=== PATIENT | male | born 1980 | race Hispanic/Latino ===

== ENCOUNTER 2020-02-08 21:01 | Emergency (ER) | payer OTHER ==
--- NOTE | 2020-02-08 21:48 | Emergency Department Report ---
ED Male HPI - General Stated complaint: URINARY RETENION Time Seen by Provider: 02/08/20 21:38 Source: patient Mode of arrival: Ambulatory Limitations: No Limitations - History of Present Illness Initial comments: Patient is a 39-year-old male that presents emergency room for complaints of lower abdominal pain and urinary retention. Patient states he has not urinated yet today. Patient states he is tried 10-20 times to urinate. Patient states just after arriving with EMS to the hospital he went into the restroom and urinated and his pain has improved. Patient states that his pain upon arrival was a 10 out of 10 and patient states that the pain now is a 2 out of 10. Patient states that his pain is better with rest and urination. Patient states his pain was worse with movement and palpation. Patient states his pain was lower abdomen and bladder pain. Patient denies dysuria. Patient denies fever and chills. Patient states he is currently at [facility] for involuntary mental rehabilitation. Patient states he is not exactly sure why he is at [facility]. Patient states he is on a 1014. Patient has a sitter with him from [facility]. Patient denies recent travel. Patient denies recent international travel. Patient denies exposure to the novel coronavirus. Patient denies sick contacts. Patient denies fever and chills. Patient denies cough. Patient denies diarrhea. Patient denies coming in contact with anybody with symptoms of the novel coronavirus. -: Sudden Location: abdomen Severity scale (0 -10): 2 Quality: aching Consistency: other Improves with: urination, rest Worsens with: movement new medication - Related Data Sexually active: No Previous Rx's Medication Instructions Recorded Last Taken Type Sulfamethoxazole/Trimethoprim 1 each PO BID 10 Days #20 tablet 02/09/20 Unknown Rx [Bactrim DS TAB] Tamsulosin [Flomax] 0.4 mg PO DAILY #14 capsule 02/09/20 Unknown Rx ED Review of Systems ROS: Stated complaint: URINARY RETENION Other details as noted in HPI Constitutional: denies: chills, fever Eyes: denies: eye pain, eye discharge, vision change ENT: denies: ear pain, throat pain Respiratory: denies: cough, shortness of breath, wheezing Cardiovascular: denies: chest pain, palpitations Endocrine: no symptoms reported Gastrointestinal: abdominal pain. denies: nausea, diarrhea Genitourinary: as per HPI. denies: urgency, dysuria Musculoskeletal: denies: back pain, joint swelling, arthralgia Skin: denies: rash, lesions Neurological: denies: headache, weakness, paresthesias Psychiatric: denies: anxiety, depression Hematological/Lymphatic: denies: easy bleeding, easy bruising ED Past Medical Hx - Past Medical History Previous Medical History?: Yes Hx Psychiatric Treatment: Yes - Surgical History Past Surgical History?: No - Family History Family history: no significant - Social History Smoking Status: Never Smoker Substance Use Type: None - Medications Home Medications: Home Medications Medication Instructions Recorded Confirmed Last Taken Type Sulfamethoxazole/Trimethoprim 1 each PO BID 10 Days #20 tablet 02/09/20 Unknown Rx [Bactrim DS TAB] Tamsulosin [Flomax] 0.4 mg PO DAILY #14 capsule 02/09/20 Unknown Rx ED Physical Exam - General Limitations: No Limitations General appearance: alert, in no apparent distress - Head Head exam: Present: atraumatic, normocephalic - Eye Eye exam: Present: normal appearance - ENT ENT exam: Present: mucous membranes moist - Neck Neck exam: Present: normal inspection - Respiratory Respiratory exam: Present: normal lung sounds bilaterally. Absent: respiratory distress - Cardiovascular Cardiovascular Exam: Present: regular rate, normal rhythm. Absent: systolic murmur, diastolic murmur, rubs, gallop - GI/Abdominal GI/Abdominal exam: Present: soft, normal bowel sounds. Absent: distended, tenderness - Rectal Rectal exam: Present: normal inspection, normal rectal tone, prostate tenderness, prostate enlargement - Extremities Exam Extremities exam: Present: normal inspection - Back Exam Back exam: Present: normal inspection - Neurological Exam Neurological exam: Present: alert, oriented X3 - Psychiatric Psychiatric exam: Present: normal affect, normal mood - Skin Skin exam: Present: warm, dry, intact, normal color. Absent: rash ED Course Vital Signs 02/08/20 21:53 Temperature 98.4 F Pulse Rate 76 Respiratory 16 Rate Blood Pressure 116/87 O2 Sat by Pulse 99 Oximetry - Reevaluation(s) Reevaluation #1: Patient had a large volume urine output. Patient voided 500 cc. Patient states his pain is gone. We will do a rectal exam. Patient agrees to plan of care on rectal exam. Nurse in the room as a occupational rehabilitation aide. Rectal exam reveals a enlarged and boggy prostate. Patient will be treated for prostatitis and given antibiotics and Flomax. 02/09/20 00:28 Reevaluation #2: I discussed all results and clinical findings with patient. I discussed plan of care with patient. Patient agrees with plan of care. Patient is stable for discharge. Patient will be discharged back to [facility] to continue his rehabilitation therapy.. Patient given discharge instructions. Patient voiced understanding of discharge instructions. 02/09/20 00:34 ED Medical Decision Making - Medical Decision Making Patient is a 39-year-old male that presents emergency room with complaints of urinary retention. Patient is currently at a psychiatric facility for involuntary mental evaluation. Patient is having multiple adjustments to psychiatric medications. Patient arrives with the inability to urinate however upon arrival to the ER the patient was able to urinate and decrease his abdominal pain. Patient then urinated a second time in the ER without difficulties. Patient's urinalysis negative. Patient had a rectal exam which demonstrated a acute prostatitis. Patient given antibiotics and Flomax. Patient stable for discharge. Patient discharged back to a psychiatric facility. - Differential Diagnosis Urinary retention, prostatitis, BPH, urinary tract infection Critical care attestation.: If time is entered above; I have spent that time in minutes in the direct care of this critically ill patient, excluding procedure time. ED Disposition Clinical Impression: Urinary retention Abdominal pain Qualifiers: Abdominal location: lower abdomen, unspecified Qualified Code(s): R10.30 - Lower abdominal pain, unspecified Prostatitis Qualifiers: Prostatitis type: acute Qualified Code(s): N41.0 - Acute prostatitis Disposition: TO HOME OR SELFCARE Is pt being admited?: No Does the pt Need Aspirin: No Condition: Stable Instructions: Prostatitis (ED), Urinary Retention in Men (ED) Additional Instructions: Patient to be discharged from the emergency and return to [facility] to continue his psychiatric rehab. Patient to follow-up with primary care in 2 to 3 days. Patient to follow-up with urologist in 2 to 3 days. Patient to rest. Patient to increase water. Patient to take Tylenol or ibuprofen as needed for pain. Patient to take meds as directed. Patient to return to the ER if condition worsens, changes or new symptoms arise. Prescriptions: Sulfamethoxazole/Trimethoprim [Bactrim DS TAB] 1 each PO BID 10 Days #20 tablet Tamsulosin [Flomax] 0.4 mg PO DAILY #14 capsule Referrals: RAYSA [facility]ORT MYER MD FELICIANO [Primary Care Provider] - 2-3 Days AARTI FRANK MD [Staff Physician] - 2-3 Days Time of Disposition: 00:33
[2020-02-09 00:14] LABS: Bilirubin,Urine NEG (Negative); Blood,Urine NEG (Negative); Color,Urine Yellow (Yellow); Mucus,Urine FEW /HPF; Protein,Urine <15 mg/dL mg/dL (Negative); Urobilinogen,Urine < 2.0 mg/dL (<2.0)
[2020-02-09] MEDS ORDERED: LIDOCAINE-MPF (1%) 10 MG/1 ML VIAL 5 ML INFILTRATI ONE (00:30)
[2020-02-09] MEDS ORDERED: TAMSULOSIN 0.4 MG CAP PO ONE (00:45)
[2020-02-09 04:15] VITALS: BP 117/58
== END 2020-02-09 03:30 | disposition home or self-care (01) ==
LOC: ED 21:01
DX: N41.9 Inflammatory disease of prostate, unspecified (principal); R33.9 Retention of urine, unspecified; R10.30 Lower abdominal pain, unspecified; Z79.899 Other long term (current) drug therapy
CPT/HCPCS: 81001; 96372; 99283; J0696